=== PATIENT | female | born 1950 | race Caucasian/White ===

== ENCOUNTER 2023-09-08 17:58 | Inpatient (IN) ==
[2023-09-08 19:44] LABS: ALT/SGPT 123 U/L (<40); AST/SGOT 233 U/L (<32); Albumin/Globulin Ratio 1.3 (1.0-2.3); Alkaline Phosphatase 109 U/L (39-117); Basophils # (Auto) 0.04 K/mcL (0.00-0.30); Basophils % (Auto) 0.4 % (0.0-2.0); Bilirubin,Total 0.4 mg/dL (0.1-1.0); Blood Urea Nitrogen 63 mg/dL (8-23); Carbon Dioxide 21 mmol/L (22-30); Chloride 89 mmol/L (96-108); Eosinophils # (Auto) 0.06 K/mcL (0.00-0.70); Eosinophils % (Auto) 0.6 % (0.0-7.0); Glomerular Filtration Rate 41; Glucose 106 mg/dL (70-105); Hematocrit 37.5 % (34.1-44.9); Hemoglobin 12.8 g/dL (11.2-15.7); Lymphocytes # (Auto) 2.13 K/mcL (1.50-4.80); Mean Cell Volume 89.7 fL (80.0-100.0); Mean Corpuscular HGB Conc 34.1 g/dL (31.0-36.0); Mean Platelet Volume 9.5 fL (8.8-12.5); Monocytes # (Auto) 0.57 K/mcL (0.10-0.90); Monocytes % (Auto) 5.6 % (1.0-12.0); Neutrophils % (Auto) 72.2 % (38.0-78.0); Platelet Count 388 K/mcL (140-440); Potassium 4.5 mmol/L (3.3-5.1); RBC 4.18 M/mcL (3.59-5.38); Red Cell Distribution Width 13.3 % (11.5-14.5); Sodium 125 mmol/L (133-145); WBC 10.2 K/mcL (4.5-11.0)
[2023-09-08 20:19] LABS: Creatine Kinase 7990 U/L (24-170)
[2023-09-08] MEDS: 0.9 % SODIUM CHLORIDE 1,000 ML IV ONE ×2 (21:33→22:47)
[2023-09-08 21:54] LABS: Appearance,Urine Clear (Clear); Bilirubin,Urine Negative (Negative); Color,Urine Yellow; Culture Indicated,Urine No; Glucose,Urine (UA) Negative (Negative); Ketones,Urine Negative (Negative); Leukocyte Esterase,Urine Negative /uL (Negative); Nitrate,Urine Negative (Negative); PH,Urine 5.5 (5.0-9.0); Protein,Urine Negative (Negative); Specific Gravity,Urine 1.015 (1.000-1.035); Urine Blood Small ery/mcL (Negative); Urine Hyaline Cast 4 /lph (0-2); Urine RBC 6 /hpf (0-3); Urine Squamous Epithelial Cell 0 /hpf (0-4); Urine WBC 4 /hpf (0-4); Urobilinogen,Urine Normal
[2023-09-08] MEDS: SODIUM BICARBONATE VIAL 150 MEQ in WATER FOR INJECTION,STERILE 850 ML IV SCH (23:40)
[2023-09-09] MEDS: SODIUM BICARBONATE 50 MEQ/50 ML VIAL ONE (00:45)
[2023-09-09] MEDS: SODIUM BICARBONATE VIAL 150 MEQ in DEXTROSE 5% IN WATER 850 ML IV SCH (00:49)
[2023-09-09] MEDS ORDERED: DEXTROSE 50% 50 ML VIAL IV PRN (07:56)
[2023-09-09] MEDS ORDERED: IPRATROPIUM/ALBUTEROL 3 ML AMPUL.NEB NEB PRN (07:56)
[2023-09-09] MEDS ORDERED: hydrALAZINE 20 MG/ML VIAL IV PRN (07:56)
[2023-09-09] MEDS ORDERED: POLYETHYLENE GLYCOL 3350 17 GM PACKET PO PRN (07:56)
[2023-09-09] MEDS ORDERED: POTASSIUM CHLORIDE 20 MEQ TABLET PO PRN ×2 (07:56)
[2023-09-09] MEDS ORDERED: MAGNESIUM SULFATE 2 GM/50 ML BAG IV PRN (07:56)
[2023-09-09] MEDS ORDERED: DEXTROSE 31 GM ORAL.SUSP PO PRN (07:56)
[2023-09-09] MEDS ORDERED: POTASSIUM CHLORIDE 40 MEQ in DEXTROSE 5% IN WATER 500 ML IV PRN (07:56)
[2023-09-09] MEDS ORDERED: METOCLOPRAMIDE 10 MG/2 ML VIAL IV PRN (07:56)
[2023-09-09] MEDS: ACETAMINOPHEN W/CODEINE #3 1 TABLET PO SCH (08:49)
[2023-09-09] MEDS: OXYBUTYNIN CHLORIDE 5 MG TAB.XL.24H PO SCH (08:49)
[2023-09-09] MEDS: CITALOPRAM 20 MG TABLET PO SCH (08:50)
[2023-09-09] MEDS: GABAPENTIN 300 MG CAPSULE PO SCH (08:50)
[2023-09-09] MEDS: ENOXAPARIN 40 MG/0.4 ML SYRINGE SQ SCH (08:51)
[2023-09-09] MEDS: METHOCARBAMOL 750 MG TABLET PO SCH (08:54)
[2023-09-09 10:49] LABS: ALT/SGPT 99 U/L (<40); AST/SGOT 171 U/L (<32); Albumin 3.5 gm/dL (3.2-5.2); Albumin/Globulin Ratio 1.3 (1.0-2.3); Alkaline Phosphatase 93 U/L (39-117); Bilirubin,Direct < 0.2 mg/dL (0-0.3); Bilirubin,Total 0.5 mg/dL (0.1-1.0); Blood Urea Nitrogen 34 mg/dL (8-23); Calcium 8.6 mg/dL (8.6-10.4); Carbon Dioxide 28 mmol/L (22-30); Chloride 94 mmol/L (96-108); Globulin 2.6 gm/dL (2.2-3.7); Glomerular Filtration Rate 90; Glucose 124 mg/dL (70-105); Lactate Dehydrogenase 273 U/L (135-225); Phosphorous 2.2 mg/dL (2.5-4.5); Potassium 4.3 mmol/L (3.3-5.1); Sodium 130 mmol/L (133-145); Triglycerides 133 mg/dL (<150); Uric Acid 4.7 mg/dL (2.5-8.0)
[2023-09-09] MEDS: 0.9 % SODIUM CHLORIDE 1,000 ML IV SCH (10:53)
[2023-09-09] MEDS: INSULIN LISPRO 1 UNIT/0.01 ML UNIT SQ SCH (11:52)
[2023-09-09] MEDS: SODIUM BICARBONATE VIAL 150 MEQ in WATER FOR INJECTION,STERILE 850 ML IV SCH (13:02)
[2023-09-09 14:18] LABS: Sodium, Urine Random 30 mmol/L
[2023-09-09 14:21] LABS: Osmolality,Urine 288 mOSM/kg (80-1000)
[2023-09-09] MEDS: 0.9 % SODIUM CHLORIDE 10 ML SYRINGE IV SCH (16:07)
[2023-09-09] MEDS: ACETAMINOPHEN 325 MG TABLET PO PRN (16:51)
[2023-09-10 06:34] LABS: ALT/SGPT 92 U/L (<40); AST/SGOT 128 U/L (<32); Albumin 3.5 gm/dL (3.2-5.2); Albumin/Globulin Ratio 1.3 (1.0-2.3); Alkaline Phosphatase 90 U/L (39-117); Bilirubin,Direct < 0.2 mg/dL (0-0.3); Bilirubin,Total 0.4 mg/dL (0.1-1.0); Blood Urea Nitrogen 17 mg/dL (8-23); Calcium 8.7 mg/dL (8.6-10.4); Carbon Dioxide 26 mmol/L (22-30); Chloride 94 mmol/L (96-108); Globulin 2.7 gm/dL (2.2-3.7); Glomerular Filtration Rate 96; Glucose 100 mg/dL (70-105); Lactate Dehydrogenase 266 U/L (135-225); Phosphorous 2.1 mg/dL (2.5-4.5); Sodium 128 mmol/L (133-145); Triglycerides 96 mg/dL (<150); Uric Acid 3.3 mg/dL (2.5-8.0)
[2023-09-10] MEDS: SODIUM CHLORIDE 1 GM TABLET PO SCH (08:31)
[2023-09-10] MEDS: 0.9 % SODIUM CHLORIDE 1,000 ML IV ONE (08:38)
[2023-09-10] MEDS: PHOSPHORUS 250 MG TABLET PO SCH (09:23)
[2023-09-10] MEDS: ONDANSETRON 4 MG/2 ML VIAL IV PRN (16:33)
[2023-09-11 06:25] LABS: ALT/SGPT 77 U/L (<40); AST/SGOT 88 U/L (<32); Albumin 3.5 gm/dL (3.2-5.2); Albumin/Globulin Ratio 1.3 (1.0-2.3); Alkaline Phosphatase 82 U/L (39-117); Bilirubin,Direct < 0.2 mg/dL (0-0.3); Bilirubin,Total 0.3 mg/dL (0.1-1.0); Blood Urea Nitrogen 11 mg/dL (8-23); Calcium 8.7 mg/dL (8.6-10.4); Carbon Dioxide 26 mmol/L (22-30); Chloride 99 mmol/L (96-108); Creatine Kinase 1475 U/L (24-170); Globulin 2.7 gm/dL (2.2-3.7); Glomerular Filtration Rate 103; Glucose 104 mg/dL (70-105); Lactate Dehydrogenase 257 U/L (135-225); Phosphorous 2.3 mg/dL (2.5-4.5); Potassium 4.2 mmol/L (3.3-5.1); Sodium 134 mmol/L (133-145); Triglycerides 88 mg/dL (<150); Uric Acid 2.6 mg/dL (2.5-8.0)
[2023-09-11] MEDS ORDERED: ACETAMINOPHEN W/CODEINE #3 1 TABLET PO PRN (09:45)
[2023-09-11] MEDS: SENNOSIDES 1 TABLET PO SCH (10:48)
[2023-09-11] MEDS: MAGNESIUM HYDROXIDE 30 ML ORAL.SUSP PO SCH (10:48)
== END 2023-09-11 10:57 | DRG 565 ==
LOC: ED 17:58 → ICU 09-09 01:01 → MEDSUR 09-09 14:05
PROVIDERS: ADMIT Internal Medicine; ATTEND Internal Medicine